=== PATIENT | female | born 1955 | race Caucasian/White ===

== ENCOUNTER 2021-12-06 11:16 | Inpatient (IN) ==
[2021-12-06 13:12] LABS: Alanine Aminotransferase 24 U/L (13-56); Albumin 3.5 G/DL (3.4-5.0); Alkaline Phosphatase 84 U/L (45-117); Aspartate Amino Transferase 24 U/L (0-37); Bilirubin,Total < 0.39 MG/DL (0.20-1.00); Blood Urea Nitrogen 43 MG/DL (7-18); Calcium 9.2 MG/DL (8.5-10.1); Carbon Dioxide 27 MMOL/L (21-32); Estimated Glom Filtration Rate 39 ML/MIN; Glucose 165 MG/DL (74-106); Osmolality,Calculated 349.2 MOS/KG (273-304); Potassium 3.8 MMOL/L (3.5-5.1); Total Protein 8.1 G/DL (6.4-8.2)
[2021-12-06 13:24] LABS: Basophils # 0.1 10*3/uL (0.0-0.2); Basophils % 0.6 % (0.0-0.8); Eosinophils # 0.2 10*3/uL (0.0-0.87); Eosinophils % 2.2 % (0.00-10.9); Hematocrit 52.3 VOL% (35.7-47.0); Immature Granulocytes % 0.3 %; Immature Granulocytes Absolute 0.03 #; Lymphocytes # 3.3 10*3/uL (1.4-4.0); Lymphocytes % 37.2 % (21.3-54.2); Mean Corpuscular HGB Conc 28.3 GM/DL (32-36); Mean Corpuscular Volume 94.4 FL (87-102); Mean Platelet Volume 12.8 FL (9.6-12.0); Monocytes % 6.1 % (1.7-12.7); Neutrophils % 53.6 % (38.7-73.9); Platelet Count 199 T/CUMM (130-400); Red Blood Count 5.54 MC/CUMM (3.8-5.5); Red Cell Distribution Width 19.9 % (9.3-17.3); White Blood Count 8.9 T/CUMM (4-12)
[2021-12-06 13:24] LABS: ABG Base Excess 1.4 MMOL/L (-2.5-2.5); ABG HCO3 25.6 MMOL/L (20-26); ABG Oxygen Saturation 95.9 % (95-100); ABG PCO2 40.3 MM HG (35-48); ABG PH 7.417 (7.35-7.45); ABG PO2 81.9 MM HG (80-95); ABG TCO2 22.5 MMOL/L (23-27)
[2021-12-06 13:29] LABS: Sodium 170 MMOL/L (136-145)
[2021-12-06 13:35] LABS: Hemoglobin 14.8 GM/DL (12.0-16.0)
[2021-12-06] MEDS ORDERED: SODIUM CHLORIDE 0.9% 1,000 ML IV STA (13:35)
[2021-12-06 13:42] LABS: Bacteria,Urine Moderate /HPF (Few); Blood, Urine Large mg/dL (Negative); Glucose,Urine (UA) Negative (Negative); Hyaline Casts,Urine 37 /LPF (0-3); Ketones,Urine 5 mg/dL (Negative); Mucus,Urine Many /LPF (Occasional); Nitrite,Urine Negative (Negative); Protein,Urine >=500 MG/DL; RBC,Urine 62 /HPF (0-4); Urine Appearance CLOUDY (Clear); Urine Color Amber (Yellow); Urine Specific Gravity 1.028 (1.001-1.035); Urine Urobilinogen < 2.0 EU/DL (<2.0)
[2021-12-06 13:52] LABS: Barbiturates Screen,Urine Negative (Negative); Benzodiazepines Screen,Urine Positive (Negative); Cannabinoid Screen,Urine Negative (Negative); Opiate Screen,Urine Negative (Negative); Phencyclidine Screen,Urine Negative (Negative)
[2021-12-06 14:02] LABS: Bilirubin,Urine Small mg/dL (Negative)
[2021-12-06] MEDS ORDERED: cefTRIAXone 1,000 MG in SODIUM CHLORIDE 0.9% 100 ML IV STA (14:05)
[2021-12-06] MEDS ORDERED: ALBUTEROL 2.5 MG/3 ML NEB RESP TX PRN (14:40)
[2021-12-06] MEDS ORDERED: ONDANSETRON 4 MG/2 ML VIAL IV PRN (14:40)
[2021-12-06 14:45] LABS: Ovalocytes Few; Platelet Estimate Adequate; Polychromasia Few
[2021-12-06] MEDS ORDERED: GLUCAGON 1 MG VIAL IM PRN (16:39)
[2021-12-06] MEDS ORDERED: DEXTROSE 10% 250 ML BAG IV PRN (16:39)
[2021-12-06] MEDS: DEXTROSE 5% NACL 0.45% 1,000 ML IV SCH (17:20)
[2021-12-06 20:44] LABS: Calcium 8.8 MG/DL (8.5-10.1); Osmolality,Calculated 345.3 MOS/KG (273-304); Potassium 3.6 MMOL/L (3.5-5.1)
[2021-12-06] MEDS ORDERED: INSULIN LISPRO 100 UNIT/ML SUBCUT SCH (21:00)
[2021-12-06 23:56] LABS: Calcium 8.4 MG/DL (8.5-10.1); Potassium 3.4 MMOL/L (3.5-5.1)
[2021-12-06 23:57] LABS: Osmolality,Calculated 347.2 MOS/KG (273-304)
[2021-12-07] MEDS: DEXTROSE 5% NACL 0.45% 1,000 ML IV SCH ×4 (02:15→21:26)
[2021-12-07 06:18] LABS: Basophils % 0.5 % (0.0-0.8); Eosinophils # 0.2 10*3/uL (0.0-0.87); Eosinophils % 2.2 % (0.00-10.9); Hematocrit 36.4 VOL% (35.7-47.0); Hemoglobin 10.5 GM/DL (12.0-16.0); Immature Granulocytes % 0.3 %; Immature Granulocytes Absolute 0.02 #; Lymphocytes # 2.9 10*3/uL (1.4-4.0); Lymphocytes % 37.5 % (21.3-54.2); Mean Corpuscular HGB Conc 28.8 GM/DL (32-36); Mean Corpuscular Volume 93.6 FL (87-102); Mean Platelet Volume 12.8 FL (9.6-12.0); Monocytes % 7.2 % (1.7-12.7); Neutrophils % 52.3 % (38.7-73.9); Platelet Count 148 T/CUMM (130-400); Red Blood Count 3.89 MC/CUMM (3.8-5.5); Red Cell Distribution Width 18.7 % (9.3-17.3); White Blood Count 7.6 T/CUMM (4-12)
[2021-12-07 06:40] LABS: Anisocytosis 1+; Platelet Estimate Adequate
[2021-12-07 06:41] LABS: Ovalocytes Few
[2021-12-07 06:52] LABS: Albumin 2.4 G/DL (3.4-5.0); Bilirubin,Total 0.9 MG/DL (0.20-1.00); Osmolality,Calculated 337.9 MOS/KG (273-304); Potassium 3.2 MMOL/L (3.5-5.1); Total Protein 6.4 G/DL (6.4-8.2)
[2021-12-07 08:58] LABS: Calcium 8.3 MG/DL (8.5-10.1); Osmolality,Calculated 333.2 MOS/KG (273-304); Potassium 3.2 MMOL/L (3.5-5.1)
[2021-12-07] MEDS: INSULIN GLARGINE 100 UNIT/ML SUBCUT SCH (09:05)
[2021-12-07] MEDS: cefTRIAXone 1,000 MG in SODIUM CHLORIDE 0.9% 100 ML IV SCH (09:05)
[2021-12-07] MEDS: POTASSIUM BICARB EFFERVESCENT 20 MEQ TAB.EFF PER TUBE PRN ×3 (09:08→15:12)
[2021-12-07 11:29] LABS: Calcium 7.8 MG/DL (8.5-10.1); Osmolality,Calculated 334.2 MOS/KG (273-304); Potassium 3.2 MMOL/L (3.5-5.1)
[2021-12-07] MEDS: INSULIN LISPRO 100 UNIT/ML SUBCUT SCH ×2 (12:27→17:20)
[2021-12-07] MEDS ORDERED: POLYETHYLENE GLYCOL POWDER 17 GM PACK PO PRN (16:03)
[2021-12-07 17:02] LABS: Calcium 8.2 MG/DL (8.5-10.1); Osmolality,Calculated 314.7 MOS/KG (273-304); Potassium 3.6 MMOL/L (3.5-5.1)
[2021-12-07 19:42] LABS: Calcium 8.1 MG/DL (8.5-10.1); Osmolality,Calculated 313.2 MOS/KG (273-304); Potassium 3.6 MMOL/L (3.5-5.1)
[2021-12-07] MEDS: RIVASTIGMINE 3 MG CAPSULE PO SCH (20:58)
[2021-12-07] MEDS: CLOTRIMAZOLE 1% CREAM 15 GM TUBE TOP SCH (20:58)
[2021-12-07] MEDS: SIMVASTATIN 10 MG TABLET PO SCH (20:58)
[2021-12-07] MEDS: QUEtiapine 25 MG TABLET PO SCH (20:58)
[2021-12-07] MEDS: MEMANTINE 10 MG TABLET PO SCH (20:58)
[2021-12-07] MEDS: APIXABAN 5 MG TABLET PO SCH (20:58)
[2021-12-07] MEDS: busPIRone 5 MG TABLET PO SCH (20:58)
[2021-12-08] MEDS: INSULIN LISPRO 100 UNIT/ML SUBCUT SCH ×5 (00:22→23:54)
[2021-12-08 01:18] LABS: Osmolality,Calculated 306.6 MOS/KG (273-304); Potassium 3.2 MMOL/L (3.5-5.1)
[2021-12-08] MEDS: DEXTROSE 5% NACL 0.45% 1,000 ML IV SCH (02:22)
[2021-12-08 07:19] LABS: Calcium 7.7 MG/DL (8.5-10.1); Osmolality,Calculated 301.9 MOS/KG (273-304); Potassium 3.1 MMOL/L (3.5-5.1)
[2021-12-08 07:35] LABS: Basophils % 0.5 % (0.0-0.8); Eosinophils # 0.2 10*3/uL (0.0-0.87); Eosinophils % 2.7 % (0.00-10.9); Hematocrit 39.1 VOL% (35.7-47.0); Hemoglobin 11.6 GM/DL (12.0-16.0); Immature Granulocytes % 0.4 %; Immature Granulocytes Absolute 0.03 #; Lymphocytes # 3.2 10*3/uL (1.4-4.0); Lymphocytes % 43.2 % (21.3-54.2); Mean Corpuscular HGB Conc 29.7 GM/DL (32-36); Mean Corpuscular Volume 92.2 FL (87-102); Mean Platelet Volume 12.5 FL (9.6-12.0); Monocytes % 6.4 % (1.7-12.7); Neutrophils % 46.8 % (38.7-73.9); Platelet Count 135 T/CUMM (130-400); Red Blood Count 4.24 MC/CUMM (3.8-5.5); Red Cell Distribution Width 18.1 % (9.3-17.3); White Blood Count 7.5 T/CUMM (4-12)
[2021-12-08] MEDS ORDERED: MAGNESIUM SULF RIDER 4 GM/100 ML PREMIX IV PRN (07:37)
[2021-12-08] MEDS: SERTRALINE 100 MG TABLET PO SCH (09:05)
[2021-12-08] MEDS: DOCUSATE SODIUM 100 MG CAPSULE PO SCH (09:05)
[2021-12-08] MEDS: cefTRIAXone 1,000 MG in SODIUM CHLORIDE 0.9% 100 ML IV SCH (09:05)
[2021-12-08] MEDS: MEMANTINE 10 MG TABLET PO SCH ×2 (09:05→21:10)
[2021-12-08] MEDS: RIVASTIGMINE 3 MG CAPSULE PO SCH ×2 (09:05→21:10)
[2021-12-08] MEDS: APIXABAN 5 MG TABLET PO SCH ×2 (09:05→21:10)
[2021-12-08] MEDS: POTASSIUM BICARB EFFERVESCENT 20 MEQ TAB.EFF PER TUBE PRN ×4 (09:05→16:16)
[2021-12-08] MEDS: MAGNESIUM SULF RIDER 2 GM/50 ML PREMIX IV PRN (09:05)
[2021-12-08] MEDS: CLOTRIMAZOLE 1% CREAM 15 GM TUBE TOP SCH ×2 (09:06→21:11)
[2021-12-08] MEDS: busPIRone 5 MG TABLET PO SCH ×2 (09:06→21:10)
[2021-12-08] MEDS: INSULIN GLARGINE 100 UNIT/ML SUBCUT SCH (10:11)
[2021-12-08] MEDS ORDERED: FUROSEMIDE 40 MG/4 ML VIAL IV ONE (14:42)
[2021-12-08 14:55] LABS: Calcium 8.4 MG/DL (8.5-10.1); Osmolality,Calculated 294.4 MOS/KG (273-304); Potassium 4.1 MMOL/L (3.5-5.1)
[2021-12-08] MEDS ORDERED: RACEPINEPHRINE 0.5 ML NEB RESP TX ONE (20:53)
[2021-12-08] MEDS: SIMVASTATIN 10 MG TABLET PO SCH (21:10)
[2021-12-08] MEDS: QUEtiapine 25 MG TABLET PO SCH (21:10)
[2021-12-08 21:37] LABS: ABG Base Excess 6.3 MMOL/L (-2.5-2.5); ABG HCO3 30.1 MMOL/L (20-26); ABG Oxygen Saturation 95.4 % (95-100); ABG PO2 71.2 MM HG (80-95); ABG TCO2 25.8 MMOL/L (23-27)
[2021-12-08] MEDS: guaiFENesin 200 MG/10 ML UDCUP PO SCH (22:20)
[2021-12-09 06:00] LABS: Basophils % 0.3 % (0.0-0.8); Eosinophils # 0.1 10*3/uL (0.0-0.87); Eosinophils % 0.5 % (0.00-10.9); Hematocrit 37.6 VOL% (35.7-47.0); Hemoglobin 11.6 GM/DL (12.0-16.0); Immature Granulocytes % 0.3 %; Immature Granulocytes Absolute 0.04 #; Lymphocytes # 2.8 10*3/uL (1.4-4.0); Lymphocytes % 24.6 % (21.3-54.2); Mean Corpuscular HGB Conc 30.9 GM/DL (32-36); Mean Corpuscular Volume 88.9 FL (87-102); Mean Platelet Volume 12.3 FL (9.6-12.0); Monocytes % 4.2 % (1.7-12.7); Neutrophils % 70.1 % (38.7-73.9); Platelet Count 121 T/CUMM (130-400); Red Blood Count 4.23 MC/CUMM (3.8-5.5); Red Cell Distribution Width 17.3 % (9.3-17.3); White Blood Count 11.6 T/CUMM (4-12)
[2021-12-09 06:21] LABS: Hypochromia 1+; Lymphocytes 27 % (20-55); Microcytosis 1+; Platelet Estimate Normal; Segmented Neutrophils 71 % (50-85); Total Cells Counted 100
[2021-12-09] MEDS: guaiFENesin 200 MG/10 ML UDCUP PO SCH ×3 (06:25→21:59)
[2021-12-09 06:31] LABS: Calcium 8.3 MG/DL (8.5-10.1); Osmolality,Calculated 287.1 MOS/KG (273-304); Potassium 3.8 MMOL/L (3.5-5.1)
[2021-12-09] MEDS: INSULIN LISPRO 100 UNIT/ML SUBCUT SCH ×3 (06:31→18:33)
[2021-12-09] MEDS: cefTRIAXone 1,000 MG in SODIUM CHLORIDE 0.9% 100 ML IV SCH (09:35)
[2021-12-09] MEDS: APIXABAN 5 MG TABLET PO SCH (09:50)
[2021-12-09] MEDS: INSULIN GLARGINE 100 UNIT/ML SUBCUT SCH (09:50)
[2021-12-09] MEDS: DOCUSATE SODIUM 100 MG CAPSULE PO SCH (09:50)
[2021-12-09] MEDS: busPIRone 5 MG TABLET PO SCH ×2 (09:50→21:58)
[2021-12-09] MEDS: RIVASTIGMINE 3 MG CAPSULE PO SCH ×2 (09:50→21:58)
[2021-12-09] MEDS: SERTRALINE 100 MG TABLET PO SCH (09:51)
[2021-12-09] MEDS: CLOTRIMAZOLE 1% CREAM 15 GM TUBE TOP SCH ×2 (09:51→21:59)
[2021-12-09] MEDS: MEMANTINE 10 MG TABLET PO SCH ×2 (09:51→21:59)
[2021-12-09] MEDS ORDERED: FUROSEMIDE 40 MG/4 ML VIAL IV ONE (15:00)
[2021-12-09] MEDS ORDERED: ETOMIDATE 20 MG/10 ML VIAL IV ONE ×2 (16:31→17:37)
[2021-12-09] MEDS ORDERED: SUCCINYLCHOLINE 200 MG/10 ML VIAL ONE ×2 (16:34→17:37)
[2021-12-09] MEDS: MEROPENEM 500 MG in SODIUM CHLORIDE 0.9% 100 ML IV SCH (18:00)
[2021-12-09 18:26] LABS: ABG Base Excess 4.3 MMOL/L (-2.5-2.5); ABG HCO3 28.3 MMOL/L (20-26); ABG Oxygen Saturation 99.8 % (95-100); ABG PCO2 35.4 MM HG (35-48); ABG PH 7.497 (7.35-7.45); Allen Test Positive; Pt O2 Delivery Device Ventilator
[2021-12-09] MEDS: MIDAZOLAM 100 MG in SODIUM CHLORIDE 0.9% 80 ML IV PRN (18:30)
[2021-12-09] MEDS: APIXABAN 5 MG TABLET PER TUBE SCH (21:58)
[2021-12-09] MEDS: LEVOFLOXACIN INJ 750 MG/150 ML PREMIX IV SCH (21:58)
[2021-12-09] MEDS: SIMVASTATIN 10 MG TABLET PO SCH (21:59)
[2021-12-09] MEDS: QUEtiapine 25 MG TABLET PO SCH (21:59)
[2021-12-10] MEDS: MEROPENEM 500 MG in SODIUM CHLORIDE 0.9% 100 ML IV SCH ×4 (00:13→16:59)
[2021-12-10] MEDS: INSULIN LISPRO 100 UNIT/ML SUBCUT SCH ×4 (00:13→17:29)
[2021-12-10 03:59] LABS: ABG Base Excess 7.2 MMOL/L (-2.5-2.5); ABG HCO3 31.1 MMOL/L (20-26); ABG Oxygen Saturation 99.9 % (95-100); ABG TCO2 25.9 MMOL/L (23-27)
[2021-12-10] MEDS: guaiFENesin 200 MG/10 ML UDCUP PO SCH ×3 (06:13→21:57)
[2021-12-10 06:26] LABS: Basophils % 0.3 % (0.0-0.8); Eosinophils # 0.1 10*3/uL (0.0-0.87); Eosinophils % 0.9 % (0.00-10.9); Hematocrit 34.9 VOL% (35.7-47.0); Immature Granulocytes % 0.7 %; Immature Granulocytes Absolute 0.08 #; Lymphocytes # 2.1 10*3/uL (1.4-4.0); Lymphocytes % 17.4 % (21.3-54.2); Mean Corpuscular HGB Conc 31.5 GM/DL (32-36); Mean Corpuscular Volume 85.5 FL (87-102); Mean Platelet Volume 12.4 FL (9.6-12.0); Monocytes % 4.8 % (1.7-12.7); Neutrophils % 75.9 % (38.7-73.9); Platelet Count 100 T/CUMM (130-400); Red Blood Count 4.08 MC/CUMM (3.8-5.5); Red Cell Distribution Width 16.8 % (9.3-17.3); White Blood Count 11.8 T/CUMM (4-12)
[2021-12-10 06:49] LABS: Albumin 2.1 G/DL (3.4-5.0); Band Neutrophils 1 % (0-10); Bilirubin,Total 0.8 MG/DL (0.20-1.00); Calcium 8.2 MG/DL (8.5-10.1); Lymphocytes 9 % (20-55); Osmolality,Calculated 283.3 MOS/KG (273-304); Platelet Estimate Decreased; Potassium 3.1 MMOL/L (3.5-5.1); Segmented Neutrophils 86 % (50-85); Total Cells Counted 100; Total Protein 6.4 G/DL (6.4-8.2)
[2021-12-10 06:50] LABS: Hypochromia Slight; Microcytosis Slight
[2021-12-10] MEDS: DOCUSATE SODIUM 100 MG CAPSULE PO SCH (08:57)
[2021-12-10] MEDS: INSULIN GLARGINE 100 UNIT/ML SUBCUT SCH (08:57)
[2021-12-10] MEDS: APIXABAN 5 MG TABLET PER TUBE SCH ×2 (08:57→20:51)
[2021-12-10] MEDS: CLOTRIMAZOLE 1% CREAM 15 GM TUBE TOP SCH ×2 (08:57→20:52)
[2021-12-10] MEDS: POTASSIUM CHLORIDE 20 MEQ PACK PEG SCH ×3 (08:57→17:27)
[2021-12-10] MEDS: MEMANTINE 10 MG TABLET PO SCH ×2 (08:57→20:51)
[2021-12-10] MEDS: busPIRone 5 MG TABLET PO SCH ×2 (08:57→20:51)
[2021-12-10] MEDS: PANTOPRAZOLE 40 MG VIAL IV SCH (08:57)
[2021-12-10] MEDS: RIVASTIGMINE 3 MG CAPSULE PO SCH ×2 (08:57→20:52)
[2021-12-10] MEDS: SERTRALINE 100 MG TABLET PO SCH (08:58)
[2021-12-10] MEDS: cefTRIAXone 1,000 MG in SODIUM CHLORIDE 0.9% 100 ML IV SCH (08:58)
[2021-12-10] MEDS: MAGNESIUM SULF RIDER 2 GM/50 ML PREMIX IV PRN (12:51)
[2021-12-10] MEDS: POTASSIUM BICARB EFFERVESCENT 20 MEQ TAB.EFF PEG SCH ×2 (16:59→20:51)
[2021-12-10] MEDS: MIDAZOLAM 100 MG in SODIUM CHLORIDE 0.9% 80 ML IV PRN (17:00)
[2021-12-10] MEDS: LEVOFLOXACIN INJ 750 MG/150 ML PREMIX IV SCH (20:50)
[2021-12-10] MEDS: QUEtiapine 25 MG TABLET PO SCH (20:51)
[2021-12-10] MEDS: SIMVASTATIN 10 MG TABLET PO SCH (20:52)
[2021-12-11] MEDS: INSULIN LISPRO 100 UNIT/ML SUBCUT SCH ×4 (00:40→17:42)
[2021-12-11] MEDS: MEROPENEM 500 MG in SODIUM CHLORIDE 0.9% 100 ML IV SCH ×4 (00:40→17:42)
[2021-12-11 04:23] LABS: Basophils % 0.2 % (0.0-0.8); Eosinophils # 0.2 10*3/uL (0.0-0.87); Eosinophils % 2.5 % (0.00-10.9); Hematocrit 31.4 VOL% (35.7-47.0); Hemoglobin 9.9 GM/DL (12.0-16.0); Immature Granulocytes % 0.5 %; Immature Granulocytes Absolute 0.05 #; Lymphocytes # 1.8 10*3/uL (1.4-4.0); Lymphocytes % 19.6 % (21.3-54.2); Mean Corpuscular HGB Conc 31.5 GM/DL (32-36); Mean Corpuscular Volume 87.5 FL (87-102); Mean Platelet Volume 12.7 FL (9.6-12.0); Monocytes % 5.6 % (1.7-12.7); Neutrophils % 71.6 % (38.7-73.9); Platelet Count 98 T/CUMM (130-400); Red Blood Count 3.59 MC/CUMM (3.8-5.5); Red Cell Distribution Width 17.1 % (9.3-17.3); White Blood Count 9.4 T/CUMM (4-12)
[2021-12-11 04:37] LABS: Calcium 7.9 MG/DL (8.5-10.1); Osmolality,Calculated 280.5 MOS/KG (273-304); Potassium 3.9 MMOL/L (3.5-5.1)
[2021-12-11 04:46] LABS: Eosinophils 4 % (0-10); Lymphocytes 20 % (20-55); Segmented Neutrophils 72 % (50-85); Total Cells Counted 100
[2021-12-11 04:47] LABS: Hypochromia 1+; Microcytosis 1+; Platelet Estimate Decreased
[2021-12-11 05:30] LABS: ABG Base Excess 6.5 MMOL/L (-2.5-2.5); ABG HCO3 30.4 MMOL/L (20-26); ABG Oxygen Saturation 97.6 % (95-100); ABG PCO2 41.7 MM HG (35-48); ABG PH 7.476 (7.35-7.45); ABG PO2 93.3 MM HG (80-95); ABG TCO2 27.7 MMOL/L (23-27)
[2021-12-11] MEDS: guaiFENesin 200 MG/10 ML UDCUP PO SCH ×3 (06:22→21:28)
[2021-12-11] MEDS: busPIRone 5 MG TABLET PO SCH ×2 (08:01→21:28)
[2021-12-11] MEDS: SERTRALINE 100 MG TABLET PO SCH (08:01)
[2021-12-11] MEDS: RIVASTIGMINE 3 MG CAPSULE PO SCH ×2 (08:01→21:28)
[2021-12-11] MEDS: APIXABAN 5 MG TABLET PER TUBE SCH ×2 (08:01→21:28)
[2021-12-11] MEDS: INSULIN GLARGINE 100 UNIT/ML SUBCUT SCH (08:01)
[2021-12-11] MEDS: MEMANTINE 10 MG TABLET PO SCH ×2 (08:01→21:28)
[2021-12-11] MEDS: PANTOPRAZOLE 40 MG VIAL IV SCH (08:01)
[2021-12-11] MEDS: CLOTRIMAZOLE 1% CREAM 15 GM TUBE TOP SCH ×2 (08:12→21:29)
[2021-12-11] MEDS: MIDAZOLAM 100 MG in SODIUM CHLORIDE 0.9% 80 ML IV PRN ×2 (08:12→23:01)
[2021-12-11] MEDS: DOCUSATE SODIUM 100 MG CAPSULE PO SCH (08:12)
[2021-12-11] MEDS: LEVOFLOXACIN INJ 750 MG/150 ML PREMIX IV SCH (21:21)
[2021-12-11] MEDS: QUEtiapine 25 MG TABLET PO SCH (21:28)
[2021-12-11] MEDS: SIMVASTATIN 10 MG TABLET PO SCH (21:28)
[2021-12-12] MEDS: INSULIN LISPRO 100 UNIT/ML SUBCUT SCH ×4 (00:19→17:48)
[2021-12-12] MEDS: MEROPENEM 500 MG in SODIUM CHLORIDE 0.9% 100 ML IV SCH ×4 (00:20→17:48)
[2021-12-12 04:05] LABS: ABG Base Excess 4.9 MMOL/L (-2.5-2.5); ABG HCO3 28.5 MMOL/L (20-26); ABG Oxygen Saturation 98.4 % (95-100); ABG PH 7.493 (7.35-7.45); ABG PO2 161.3 MM HG (80-95); ABG TCO2 29.7 MMOL/L (23-27); Allen Test Positive; Pt O2 Delivery Device Ventilator
[2021-12-12] MEDS: guaiFENesin 200 MG/10 ML UDCUP PO SCH ×3 (06:10→21:32)
[2021-12-12 07:20] LABS: Basophils % 0.3 % (0.0-0.8); Eosinophils # 0.1 10*3/uL (0.0-0.87); Eosinophils % 2.4 % (0.00-10.9); Hematocrit 30.4 VOL% (35.7-47.0); Hemoglobin 9.5 GM/DL (12.0-16.0); Immature Granulocytes % 1.2 %; Immature Granulocytes Absolute 0.07 #; Lymphocytes # 1.5 10*3/uL (1.4-4.0); Lymphocytes % 26.2 % (21.3-54.2); Mean Corpuscular HGB Conc 31.3 GM/DL (32-36); Mean Corpuscular Volume 88.1 FL (87-102); Mean Platelet Volume 13.3 FL (9.6-12.0); Monocytes % 6.6 % (1.7-12.7); Neutrophils % 63.3 % (38.7-73.9); Platelet Count 87 T/CUMM (130-400); Red Blood Count 3.45 MC/CUMM (3.8-5.5); Red Cell Distribution Width 17.5 % (9.3-17.3); White Blood Count 5.8 T/CUMM (4-12)
[2021-12-12 07:31] LABS: Calcium 8.2 MG/DL (8.5-10.1); Osmolality,Calculated 280.7 MOS/KG (273-304); Potassium 4.2 MMOL/L (3.5-5.1)
[2021-12-12 07:42] LABS: Eosinophils 7 % (0-10); Lymphocytes 23 % (20-55); Platelet Estimate Decreased; Segmented Neutrophils 66 % (50-85); Total Cells Counted 100
[2021-12-12 07:43] LABS: Hypochromia 1+; Microcytosis 1+
[2021-12-12] MEDS: busPIRone 5 MG TABLET PO SCH ×2 (08:05→21:32)
[2021-12-12] MEDS: PANTOPRAZOLE 40 MG VIAL IV SCH (08:05)
[2021-12-12] MEDS: APIXABAN 5 MG TABLET PER TUBE SCH ×2 (08:05→21:32)
[2021-12-12] MEDS: SERTRALINE 100 MG TABLET PO SCH (08:05)
[2021-12-12] MEDS: RIVASTIGMINE 3 MG CAPSULE PO SCH ×2 (08:05→21:32)
[2021-12-12] MEDS: MEMANTINE 10 MG TABLET PO SCH ×2 (08:05→21:33)
[2021-12-12] MEDS: DOCUSATE SODIUM 100 MG CAPSULE PO SCH (08:15)
[2021-12-12] MEDS: INSULIN GLARGINE 100 UNIT/ML SUBCUT SCH (08:15)
[2021-12-12] MEDS: CLOTRIMAZOLE 1% CREAM 15 GM TUBE TOP SCH ×2 (08:15→21:33)
[2021-12-12] MEDS: MORPHINE 2 MG/1 ML SYRINGE IV PRN ×2 (13:59→18:28)
[2021-12-12] MEDS: MIDAZOLAM 100 MG in SODIUM CHLORIDE 0.9% 80 ML IV PRN (14:31)
[2021-12-12] MEDS: QUEtiapine 25 MG TABLET PO SCH (21:32)
[2021-12-12] MEDS: SIMVASTATIN 10 MG TABLET PO SCH (21:32)
[2021-12-12] MEDS: LEVOFLOXACIN INJ 750 MG/150 ML PREMIX IV SCH (21:32)
[2021-12-13] MEDS: INSULIN LISPRO 100 UNIT/ML SUBCUT SCH ×3 (00:29→12:00)
[2021-12-13] MEDS: MEROPENEM 500 MG in SODIUM CHLORIDE 0.9% 100 ML IV SCH ×3 (00:46→12:00)
[2021-12-13 03:49] LABS: Basophils % 0.3 % (0.0-0.8); Eosinophils # 0.2 10*3/uL (0.0-0.87); Hematocrit 28.9 VOL% (35.7-47.0); Immature Granulocytes % 1.4 %; Immature Granulocytes Absolute 0.09 #; Lymphocytes # 1.9 10*3/uL (1.4-4.0); Lymphocytes % 29.2 % (21.3-54.2); Mean Corpuscular HGB Conc 31.1 GM/DL (32-36); Mean Corpuscular Volume 88.7 FL (87-102); Mean Platelet Volume 12.6 FL (9.6-12.0); Monocytes % 8.5 % (1.7-12.7); Neutrophils % 57.6 % (38.7-73.9); Platelet Count 104 T/CUMM (130-400); Red Blood Count 3.26 MC/CUMM (3.8-5.5); Red Cell Distribution Width 17.4 % (9.3-17.3); White Blood Count 6.6 T/CUMM (4-12)
[2021-12-13 04:15] LABS: Osmolality,Calculated 276.5 MOS/KG (273-304); Potassium 3.9 MMOL/L (3.5-5.1)
[2021-12-13 04:20] LABS: Eosinophils 2 % (0-10); Hypochromia 1+; Lymphocytes 28 % (20-55); Microcytosis 1+; Platelet Estimate Decreased; Segmented Neutrophils 60 % (50-85); Total Cells Counted 100
[2021-12-13 05:19] LABS: ABG Base Excess 3.5 MMOL/L (-2.5-2.5); ABG HCO3 27.5 MMOL/L (20-26); ABG Oxygen Saturation 98.8 % (95-100); ABG PCO2 37.8 MM HG (35-48); ABG PH 7.466 (7.35-7.45); ABG TCO2 25.1 MMOL/L (23-27)
[2021-12-13] MEDS: guaiFENesin 200 MG/10 ML UDCUP PO SCH (06:18)
[2021-12-13] MEDS: MIDAZOLAM 100 MG in SODIUM CHLORIDE 0.9% 80 ML IV PRN (07:13)
[2021-12-13] MEDS: CLOTRIMAZOLE 1% CREAM 15 GM TUBE TOP SCH (08:40)
[2021-12-13] MEDS: DOCUSATE SODIUM 100 MG CAPSULE PO SCH (09:00)
[2021-12-13] MEDS: INSULIN GLARGINE 100 UNIT/ML SUBCUT SCH (09:20)
[2021-12-13] MEDS: SERTRALINE 100 MG TABLET PO SCH (09:20)
[2021-12-13] MEDS: PANTOPRAZOLE 40 MG VIAL IV SCH (09:20)
[2021-12-13] MEDS: APIXABAN 5 MG TABLET PER TUBE SCH (09:20)
[2021-12-13] MEDS: MEMANTINE 10 MG TABLET PO SCH (09:20)
[2021-12-13] MEDS: busPIRone 5 MG TABLET PO SCH (09:20)
[2021-12-13] MEDS: RIVASTIGMINE 3 MG CAPSULE PO SCH (09:20)
[2021-12-13] MEDS: MORPHINE 2 MG/1 ML SYRINGE IV PRN ×7 (11:20→23:41)
[2021-12-13] MEDS: LORazepam 2 MG/1 ML VIAL IV PRN ×4 (11:35→20:40)
[2021-12-14] MEDS: APIXABAN 5 MG TABLET PER TUBE SCH ×3 (01:36→21:30)
[2021-12-14] MEDS: RIVASTIGMINE 3 MG CAPSULE PO SCH ×3 (01:36→21:51)
[2021-12-14] MEDS: busPIRone 5 MG TABLET PO SCH ×3 (01:36→21:30)
[2021-12-14] MEDS: CLOTRIMAZOLE 1% CREAM 15 GM TUBE TOP SCH ×3 (01:37→21:31)
[2021-12-14] MEDS: LEVOFLOXACIN INJ 750 MG/150 ML PREMIX IV SCH ×2 (01:37→21:52)
[2021-12-14] MEDS: MEMANTINE 10 MG TABLET PO SCH ×3 (01:37→21:30)
[2021-12-14] MEDS: SIMVASTATIN 10 MG TABLET PO SCH ×2 (01:38→21:30)
[2021-12-14] MEDS: QUEtiapine 25 MG TABLET PO SCH ×2 (01:38→21:31)
[2021-12-14] MEDS: MORPHINE 2 MG/1 ML SYRINGE IV PRN ×6 (03:50→20:19)
[2021-12-14] MEDS: LORazepam 2 MG/1 ML VIAL IV PRN ×4 (06:37→21:52)
[2021-12-14] MEDS: PANTOPRAZOLE 40 MG VIAL IV SCH (08:55)
[2021-12-14] MEDS: SERTRALINE 100 MG TABLET PO SCH (09:00)
[2021-12-14] MEDS: DOCUSATE SODIUM 100 MG CAPSULE PO SCH (09:00)
[2021-12-14] MEDS: INSULIN GLARGINE 100 UNIT/ML SUBCUT SCH (10:20)
[2021-12-14] MEDS ORDERED: LORazepam 2 MG/1 ML VIAL ONE (21:34)
[2021-12-15] MEDS: MORPHINE 2 MG/1 ML SYRINGE IV PRN ×5 (04:42→15:47)
[2021-12-15] MEDS: INSULIN GLARGINE 100 UNIT/ML SUBCUT SCH (10:04)
[2021-12-15] MEDS: RIVASTIGMINE 3 MG CAPSULE PO SCH (10:04)
[2021-12-15 11:35] VITALS: BP 111/66
[2021-12-15] MEDS: CLOTRIMAZOLE 1% CREAM 15 GM TUBE TOP SCH (11:59)
[2021-12-15] MEDS ORDERED: ACETAMINOPHEN 650 MG SUPP RECTAL PRN (12:05)
[2021-12-15] MEDS: LORazepam 2 MG/1 ML VIAL IV PRN (14:42)
== END 2021-12-15 18:30 | disposition expired | DRG 871 ==
LOC: EDUNIT# → EDBD → N.ED 11:16 → N.EDINP 14:42 → SUATTDRO 14:42 → N.ICU 18:57 → N.3E 12-15 01:39
PROVIDERS: ADMIT Family Medicine; ATTEND Internal Medicine